=== PATIENT | female | born 1950 | race Caucasian/White ===

== ENCOUNTER → 2020-02-20 | Outpatient (CLI) | payer MEDICARE, OTHER | LOC: M.RAD 11:51 | PROVIDERS: ATTEND Family Medicine | DX: M51.37 Other intervertebral disc degeneration, lumbosacral region (principal); M51.34 Other intervertebral disc degeneration, thoracic region; M47.816 Spondylosis without myelopathy or radiculopathy, lumbar region; I70.0 Atherosclerosis of aorta ==

== ENCOUNTER → 2020-02-28 | Outpatient (CLI) | payer MEDICARE, OTHER | LOC: M.MRI 06:50 | PROVIDERS: ATTEND Family Medicine | DX: M47.26 Other spondylosis with radiculopathy, lumbar region (principal) ==

== ENCOUNTER → 2020-03-17 | Outpatient (CLI) | payer MEDICARE, OTHER ==
[~2020-03-17] MED LIST: BUSPIRONE HCL10 MG PO; CELEXA 20 MG TA20 MG PO; LIPITOR 40 MG T40 M1 PO; LISINOPRIL PO; MELATONIN5 MG SUBLING; METFORMIN HCL500 M3 PO; PEPCID20 MG PO; SYNTHROID25 MC1 PO
--- NOTE | 2020-03-18 09:00 | PAINCON ---
[address] [address] PAIN MANAGEMENT CONSULTATION Name: ABDIFATAHAMOR Ganesh Room: [facility] MichelleAngelo#: [id number] Admission: 03/17/20 Attend Phys: Jos Nieto MD Discharge: Date of : 48 Report #: [id number] THIS REPORT FOR: //name// cc: Ifrah Rosario Linda J. DO THIS REPORT FOR: //name// CC: Ifrah Gold DATE OF SERVICE: 03/17/2020 CHIEF COMPLAINT: Low back and left leg pain. HISTORY OF PRESENT ILLNESS: The patient is a 69-year-old female who has been referred to the Pain Clinic for evaluation of back and left leg pain. The patient has had pain, which has become more problematic over the last 4 years. She feels that it is impacting her quality of life. Pain is worse with most activities. Pain is better when she is doing nothing. She did have a rupture of her colon. Since that surgery, she has noted worsening of pain and discomfort. She has had about surgeries as a result of the ruptured colon. She has been quite sedentary. She has not had physical therapy. She has had some chiropractic treatment in the past. She has undergone medical massages. She states that they only last for an hour or so. The pain returns after the massage has completed. She has been a person who has been quite active in life. 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 She describes her pain as continuous, steady, constant, burning, aching, throbbing, and pounding. She rates it as a 9 today. It can rise to the level of 10, but she describes it as 11 on a scale of 10. ALLERGIES: CODEINE causes nausea and vomiting. IBUPROFEN caused her to have suicidal ideation. PAST MEDICAL HISTORY: Diabetes, hypertension, kidney disease, thyroid disease, colon problems, stomach problems, emotional problems, and joint disease/arthritis. PAST SURGICAL HISTORY: In 06/2017, rupture of the colon. In 04/2018, hernia surgery. In 01/2018, hernia surgery. In 08/2019, hernia repair. SOCIAL HISTORY: She is retired, has not worked in the last 12 years. REVIEW OF SYSTEMS: Fatigue, weakness, wears glasses, hearing loss, chronic sinus problems, swelling of the feet and ankles, painful bowel movements, abdominal pain, joint pain, joint stiffness, weakness of muscles and joint, [place] [address] PAIN MANAGEMENT CONSULTATION Name: ANABELLECORRYAMOR RICHARD Room: [facility]#: [id number] Admission: 03/17/20 Attend Phys: Jos Nieto MD Discharge: Date of : 48 Report #: [id number] muscle pain and cramps, back pains, difficulty walking, heat and cold intolerance, tremors, head injury, depression, insomnia, sleep apnea, hyperlipidemia, hypertension, diverticulitis, diabetes, kidney disease, thyroid disease, colon problems, stomach problems, emotional problems, and joint disease/arthritis. LABORATORY DATA: X-ray of the lumbar spine dated 02/20/2020 reveals lumbar spine is anatomically aligned. No fractures are seen. [id number] degenerative disk disease throughout the lumbar spine and visualized lower thoracic spine, most prominent at, T10, T11 and L5-S1. Mild facet arthropathy of the lower lumbar spine. Mild and atherosclerotic calcification of the abdominal aorta. MRI of the lumbar spine dated 02/28/2020 at: 1. L3-L4, broad-based posterior disk bulge, bilateral facet hypertrophy and ligamentum flavum hypertrophy resulting in mild central and central canal stenosis and no significant neural foraminal narrowing. 2. L4-L5, broad-based posterior disk bulge, bilateral facet hypertrophy and ligamentum flavum hypertrophy resulting in mild central canal stenosis and no significant neural foraminal narrowing. 3. L5-S1, broad-based posterior disk bulge and left lateral disk bulge, bilateral facet hypertrophy, no significant central canal stenosis. No significant right and moderate left neural foraminal narrowing, predominantly due to mass effect on the left lateral disk bulge on the exiting L5 nerve root. PAIN CLINIC ASSESSMENT/PQRS: 1. Osteoarthritis. The patient is not being treated for osteoarthritis. 2. Height 5 feet 3 inches, weight 190 pounds, and BMI is 33.6. 3. Vital signs: Blood pressure, heart rate 91, respiratory rate 16, room air saturation 95%, and temperature 97.8. 4. Pain intensity, 8/10. 5. Fall history: The patient has not fallen in the last month. 6. Blood thinner. The patient is not on a blood thinning medication. 7. Hypertension. The patient is being treated for hypertension. 8. Opioids greater than 6 weeks. The patient is not on opioid medication on a regular basis. 9. Risk assessment tool, low for opioid use. 10. Functional assessment tool reviewed. 11. Recreational drug use. The patient denies. 12. Tobacco: The patient does not smoke. 13. Alcohol. The patient denies significant alcohol use. PHYSICAL EXAMINATION: GENERAL: The patient is a well-developed, well-nourished, somewhat obese white female, appears her stated age. She is alert and oriented x 3. Her affect is appropriate[place] [address] PAIN MANAGEMENT CONSULTATION Name: AMOR GARDINER Room: [facility]#: [id number] Admission: 03/17/20 Attend Phys: Jos Nieto MD Discharge: Date of : 48 Report #: [id number] HEENT: Normocephalic, atraumatic. Extraocular eye muscles intact. Sclerae nonicteric. Mucous membranes are moist. NECK: Without adenopathy or JVD. HEART: Regular rate. LUNGS: Clear to auscultation. ABDOMEN: Nontender. EXTREMITIES: Deep tendon reflexes +1 for the biceps on the left and right arm. The patient complains of pain and discomfort in lower portion of her back. Forward bending cause some increased low back discomfort. Left and right lateral bending cause some increased back pain and discomfort in the lower left buttocks area. Lumbar extension cause increased pain and discomfort. Anterior spring test was negative. Posterior spring test was negative. The patient did complain of some pain and discomfort in the right hip area with Vince's maneuver. Deep tendon reflexes are +3 on the right knee and +2 on the left. MUSCULOSKELETAL: Upper extremity muscle strength is judged to be 5-/5 for the major muscle groups in the upper extremity. The patient complains of some pain in the lower portion of her back on the left side, which radiates down the lateral portion of her L4-L5 dermatomal distribution into the anterior portion of her calf. IMPRESSION: 1. Lumbar radiculopathy with L5-S1 dermatomal distribution involving the left leg. 2. Diabetes. 3. Hypertension. 4. Kidney disease. 5. Thyroid disease. 6. Colon problems. 7. Stomach problems. 8. Emotional problems. 9. Joint disease/arthritis. RECOMMENDATION: We discussed treatment options with the patient. Risks and benefits of an epidural steroid injection were discussed. At this point, the patient is showing signs of lumbar radiculopathy in the L4-L5 dermatomal distribution on the left. She will return to the Pain Clinic, at which time she would then undergo an epidural steroid injection to help decrease the pain and discomfort she is experiencing. We discussed the treatment options with the patient. A model was used to indicate the area of probable pathology. A video showing lumbar radiculopathy in the pathophysiology of its causes were shown to the patient. She states that this was beneficial. She feels now she has an idea of why she is having the pain and discomfort she is experiencing. She will return to the Pain Clinic, at which time, she will then undergo an epidural steroid injection in the L4-L5 dermatomal distribution. The risk and benefits of epidural steroid injections were discussed. The patient will follow up in the Pain Clinic. She will then [place] [address] PAIN MANAGEMENT CONSULTATION Name: AMOR GARDINER Room: [facility] Martinez#: [id number] Admission: 03/17/20 Attend Phys: Jos Nieto MD Discharge: Date of : 48 Report #: [id number] injection with the hopes of coiling and decreasing the discomfort she is experiencing. We would like to thank you for letting us participate in her care. We hope she continues to improve. <ELECTRONICALLY SIGNED> By: Jos Nieto MD 03/18/20 0900 [id number]. Deric Nieto MD /bart
== END ==
LOC: M.PC 05:14
PROVIDERS: ATTEND Anesthesiology Pain Medicine
DX: M54.17 Radiculopathy, lumbosacral region (principal); M79.605 Pain in left leg; E11.9 Type 2 diabetes mellitus without complications; I10 Essential (primary) hypertension; N18.9 Chronic kidney disease, unspecified; F98.9 Unspecified behavioral and emotional disorders with onset usually occurring in childhood and adolescence; E07.9 Disorder of thyroid, unspecified; K59.9 Functional intestinal disorder, unspecified; K92.9 Disease of digestive system, unspecified; M19.90 Unspecified osteoarthritis, unspecified site

== ENCOUNTER → 2020-03-24 | Outpatient (CLI) | payer MEDICARE, OTHER ==
--- NOTE | 2020-04-07 08:24 | PAINCON ---
[place] [address] PAIN MANAGEMENT CONSULTATION Name: CHADWICKAMOR HALLMAN Room: [facility]#: [id number] Admission: 03/24/20 Attend Phys: Jos Nieto MD Discharge: Date of : 48 Report #: [id number] THIS REPORT FOR: //name// cc: Ifrah Rosario Linda J. DO ~ THIS REPORT FOR: //name// CC: Ifrah Nieto DATE OF SERVICE: 03/24/2020 CHIEF COMPLAINT: Low back pain and pain down the left leg. HISTORY: The patient is a 69-year-old female who has been referred to the pain clinic because of low back pain with pain radiating down into her left leg. The patient has noticed worsening of her pain over the last 4 years. This pain has been more impacting on her life and degrading its quality. She has returned today for an epidural steroid injection because of the lumbar radicular pain. ALLERGIES: CODEINE CAUSE NAUSEA AND VOMITING. IBUPROFEN CAUSE SUICIDAL IDEATION. MEDICATIONS: Naprosyn 200 mg at bedtime. PAIN CLINIC ASSESSMENT AND PQRS: 1. Osteoarthritis. The patient is not being treated for osteoarthritis. 2. The patient is not being treated for rheumatoid arthritis. 3. Height 5 feet 3 inches, weight 191 pounds, BMI is 33.9. 4. Vital Signs: Blood pressure 123/68, heart rate 82, respiratory rate 16, room air saturation 95%, temperature 98.1. 5. Pain Intensity: 5-6/10. 6. Fall History: The patient has not fallen in the last 3 months. 7. Blood Thinner: The patient is not on a blood thinning medication. 8. Hypertension: The patient is being treated for hypertension. 9. Opioids greater than 6 weeks: The patient is not being treated with opioid medications on a regular basis. 10. Risk assessment tool: Low for opioid use. 11. Functional assessment tool: Reviewed. 12. Recreational drug use: The patient denies. 13. Tobacco: The patient does not smoke. 14. Alcohol. The patient denies significant use of alcoholic beverages. PHYSICAL EXAMINATION: GENERAL: The patient is a well-developed, well-nourished somewhat obese white female, who appears her stated age. She is alert and oriented x 3[place] [address] PAIN MANAGEMENT CONSULTATION Name: AMOR GARDINER Room: [facility]#: [id number] Admission: 03/24/20 Attend Phys: Jos Nieto MD Discharge: Date of : 48 Report #: [id number] is appropriate. Speech is fluent. HEENT: Normocephalic, atraumatic. Extraocular eye muscles intact. Sclerae nonicteric. Mucous membranes are moist. NECK: Without adenopathy or JVD. HEART: Regular rate. LUNGS: Clear to auscultation. ABDOMEN: Nontender. MUSCULOSKELETAL: The patient ____ complains of some pain and discomfort in her right hip with Vince's maneuver. Deep tendon reflexes are +3 on the right knee and +2 on the left. The patient's muscle strength judged to be 5/5 for the major muscle groups in the upper extremity. The patient has pain and discomfort in lower portion of her back. She has pain and discomfort, which is radiating down the L4-L5 dermatomal distribution with sensory changes down into her calf. IMPRESSION: 1. Lumbar radiculopathy, L5-S1 dermatomal distribution involving the left leg. 2. Diabetes. 3. Hypertension. 4. Kidney disease. 5. Thyroid disease. 6. Colon problems. 7. Stomach problems. 8. Emotional problems. 9. Joint/arthritis. RECOMMENDATIONS: We discussed treatment options with the patient. Risks and benefits of an epidural steroid injection were again discussed. The possible complications of the procedure, which could include but are not limited to infection, increased muscle soreness, bleeding, nerve damage, spinal headache. We discussed the problems with COVID-19 pandemic. Steroids can decrease one's immune response. The patient could have a more difficult time if she becomes infected with COVID-19 in the interim. She is aware and elects to proceed. PROCEDURE NOTE: The patient was taken to the procedure area. She was then assisted in getting on the examination table. Her back was sterilely prepped with a Betadine solution. A 0.25% bupivacaine was infiltrated. A 17-gauge Tuohy with loss of resistance technique was used to gain access to the epidural space. There was no CSF, heme or paresthesia. Total of 80 mg Depo-Medrol, 40 mg triamcinolone and 2 mL of 0.25% bupivacaine was injected. Fluoroscopy using anterior, posterior viewing were implemented. The patient tolerated the procedure well. She was then taken to the procedure area where she remained [place] [address] PAIN MANAGEMENT CONSULTATION Name: AMOR GARDINER Room: [facility]#: [id number] Admission: 03/24/20 Attend Phys: Jos Nieto MD Discharge: Date of : 48 Report #: [id number] We would like to thank you for letting us participate in her care. We hope she continues to improve. <ELECTRONICALLY SIGNED> By: Jos Nieto MD 04/07/20 0824 [id number] [id number] Nieto MD /nt
== END | disposition home or self-care (01) ==
LOC: M.PC 10:37
PROVIDERS: ATTEND Anesthesiology Pain Medicine
DX: M54.5 Low back pain (principal); M54.16 Radiculopathy, lumbar region; M19.90 Unspecified osteoarthritis, unspecified site; I12.9 Hypertensive chronic kidney disease with stage 1 through stage 4 chronic kidney disease, or unspecified chronic kidney disease; E11.22 Type 2 diabetes mellitus with diabetic chronic kidney disease; N18.9 Chronic kidney disease, unspecified; Z88.5 Allergy status to narcotic agent; Z88.8 Allergy status to other drugs, medicaments and biological substances; Z79.899 Other long term (current) drug therapy; Z98.890 Other specified postprocedural states

== ENCOUNTER → 2020-04-21 | Outpatient (CLI) | payer MEDICARE, OTHER ==
--- NOTE | ~2020-04-21 | PAINCON ---
[address] [address] PAIN MANAGEMENT CONSULTATION Name: CHADWICKAMOR HALLMAN Ganesh Room: [facility] MichelleAngelo#: [id number] Admission: 04/21/20 Attend Phys: Jos Nieto MD Discharge: Date of : 48 Report #: [id number] THIS REPORT FOR: //name// cc: Ifrah Rosario Linda J. DO ~ THIS REPORT FOR: //name// CC: Ifrah Nieto DATE OF SERVICE: 04/21/2020 CHIEF COMPLAINT: Here for an epidural steroid injection. HISTORY: The patient is a 69-year-old female, who has been seen in the Pain Clinic in the past because of lumbar radiculopathy. She has undergone epidural steroid injections and gleaned benefit from these. She returns today indicating that her pain continues to be problematic and she rates it as a 6 with pain radiating down the lower portion of her back as well as involving the middle portion of her back. She received about 50% improvement from the last injection. Pain has increased over the last couple of days. Pain radiates somewhat up in the upper mid portion of her back to about the level of her bra line and has pain that radiates down her left hip and down into her thigh. ALLERGIES: CODEINE CAUSES NAUSEA AND VOMITING AND IBUPROFEN CAUSES SUICIDAL IDEATION. CURRENT MEDICATIONS: Naprosyn 200 mg at bedtime. PAIN CLINIC ASSESSMENT AND PQRS: 1. The patient is not being treated for osteoarthritis. The patient is not being treated for rheumatoid arthritis. 2. Height 5 feet 3 inches, weight 191 pounds, BMI is 34.0. 3. Vital signs: Blood pressure 120/71, heart rate 77, respiratory rate 18, room air saturation 97%, temperature 97.5. 4. Pain intensity: 6/10. 5. Fall history: The patient has not fallen in the last 3 months. 6. Blood thinner: The patient is not on a blood thinning medication. 7. Hypertension: The patient is being treated for hypertension. 8. Opioids greater than 6 weeks: The patient is not being treated with opioid medications on a regular basis. 9. Risk assessment tool: Low for opioid use. 10. Functional assessment tool: Reviewed. 11. Recreational drug use: The patient denies. 12. Tobacco: The patient does not smoke. 13. Alcohol: The patient [place] [address] PAIN MANAGEMENT CONSULTATION Name: ANABELLECORRYAMOR RICHRAD Room: [facility]#: [id number] Admission: 04/21/20 Attend Phys: Jos Nieto MD Discharge: Date of : 48 Report #: [id number] PHYSICAL EXAMINATION: GENERAL: The patient is a well-developed, well-nourished, somewhat obese, white female, appears her stated age. She is alert and oriented x 3. Her affect is appropriate. Speech is fluent. HEENT: Normocephalic, atraumatic. Extraocular eye muscles intact. Sclerae nonicteric. The patient is wearing a facial covering. HEART: Regular. LUNGS: Clear. ABDOMEN: Nontender. MUSCULOSKELETAL: The patient without significant scoliosis, kyphosis or lordosis. Deep tendon reflexes +3 on the right, +2 on the left. Muscle strength is judged to be 5/5 for the major muscle groups in the upper extremity. The patient has pain that is radiating down into the L4-L5 dermatomal distribution with sensory changes in her calf. IMPRESSION: 1. Lumbar radiculopathy at L4-L5 area as well as at the L5-S1 dermatomal distribution. 2. Diabetes. 3. Hypertension. 4. Kidney disease. 5. Thyroid disease. 6. Colon problems. 7. Stomach problems. 8. Emotional problems. 9. Joint disease/arthritis. RECOMMENDATIONS: We discussed treatment options with the patient. Risks and benefits of an epidural steroid injection were discussed. Possible complications of the procedure were discussed, they include but are not limited to infection, worsening pain, no improvement in pain, nerve damage, and spinal headache. We have discussed the problems with COVID-19, it is pandemic. Should the patient become infected by the virus, she may have a more difficult time with it given that steroids can decrease one's immunity. The patient elects to proceed. PROCEDURE NOTE: The patient was taken to the procedure area. She was then assisted in getting on the examination table. Her back was sterilely prepped with betadine solution. A pillow was placed under the abdomen to bolster and improve positioning. 0.25% bupivacaine was infiltrated at the L4-L5 interspace using a 25-gauge needle. A 17-gauge Tuohy with loss of resistance technique was then used to gain access to the epidural space. There was no CSF, heme or paresthesia. Total of 80 mg Depo-Medrol, 40 mg triamcinolone, and 2 mL of 0.25% bupivacaine was injected. The patient tolerated the procedure well. She remained in the Pain Clinic for an appropriate amount of time. A total of 17 [place] [address] PAIN MANAGEMENT CONSULTATION Name: AMOR GARDINER Room: [facility]#: [id number] Admission: 04/21/20 Attend Phys: Jos Nieto MD Discharge: Date of : 48 Report #: [id number] seconds fluoroscopy time was used. The patient's pain decreased to zero. She will follow up in the future as needed. We would like to thank you for letting us participate in her care. We hope she continues to improve. By: 1210 [id number]. Deric Nieto MD /nt
== END | disposition home or self-care (01) ==
LOC: M.PC 07:59
PROVIDERS: ATTEND Anesthesiology Pain Medicine
DX: M54.16 Radiculopathy, lumbar region (principal); E11.9 Type 2 diabetes mellitus without complications; I10 Essential (primary) hypertension; M19.90 Unspecified osteoarthritis, unspecified site; Z79.899 Other long term (current) drug therapy; Z79.84 Long term (current) use of oral hypoglycemic drugs; Z88.5 Allergy status to narcotic agent

== ENCOUNTER → 2021-01-21 | Outpatient (CLI) | payer MEDICARE, OTHER | LOC: M.ULTRA 10:14 | PROVIDERS: ATTEND Family Medicine | DX: I12.9 Hypertensive chronic kidney disease with stage 1 through stage 4 chronic kidney disease, or unspecified chronic kidney disease (principal); N28.1 Cyst of kidney, acquired; R74.8 Abnormal levels of other serum enzymes; N18.2 Chronic kidney disease, stage 2 (mild); R60.9 Edema, unspecified; E11.22 Type 2 diabetes mellitus with diabetic chronic kidney disease ==